=== PATIENT | male | born 1990 | race Caucasian/White ===

== ENCOUNTER 2017-12-30 09:09 | Emergency (ER) | payer SELFPAY ==
[~2017-12-30] VITALS: Ht 190.5 cm; Wt 94.6 kg
[2017-12-30] MEDS ORDERED: CEFTRIAXONE 250 MG IM ONE (11:00)
[2017-12-30] MEDS ORDERED: AZITHROMYCIN 500 MG TABLET PO ONE (11:00)
[2017-12-30 11:25] LABS: BASOPHILS # (AUTO) 0.02 x10^3/uL (0-0.1); BASOPHILS % (AUTO) 0 % (0-1); EOSINOPHILS # (AUTO) 0.07 x10^3/uL (0-0.4); EOSINOPHILS % (AUTO) 1 % (1-7); LYMPHOCYTES % (AUTO) 25 % (22-44); MD NO; MEAN CORPUSCULAR HGB CONC 33.4 g/dL (33.2-36.2); MEAN CORPUSCULAR VOLUME 89.7 fL (81-97); MEAN PLATELET VOLUME 8.5 fL (7.4-10.4); MONOCYTES # (AUTO) 0.74 x10^3/uL (0.2-0.8); MONOCYTES % (AUTO) 11 % (2-9); NEUTROPHILS # (AUTO) 4.08 x10^3/uL (1.8-6.8); NEUTROPHILS % (AUTO) 63 % (42-75); PLATELET COUNT 278 x10^3/uL (130-400); RED BLOOD COUNT 5.65 x10^6/uL (4.38-5.82); RED CELL DISTRIBUTION WIDTH 14.2 % (9.4-14.8)
[2017-12-30 11:25] LABS: MICROSCOPIC AUTO
[2017-12-30 11:29] LABS: CULTURE INDICATED? YES
[2017-12-30 11:36] LABS: ALANINE AMINOTRANSFERASE 20 U/L (12-78); ALBUMIN 3.9 g/dL (3.4-5.0); ANION GAP 8 mmol/L (5-15); CHLORIDE 106 mmol/L (98-107)
[2017-12-30 11:38] LABS: ALKALINE PHOSPHATASE 93 U/L (45-117); BILIRUBIN,TOTAL 0.4 mg/dL (0.2-1.0); TOTAL PROTEIN 8.2 g/dL (6.4-8.2)
[2017-12-30] MEDS ORDERED: AZITHROMYCIN 500 MG TABLET ONE (13:58)
[2017-12-30] MEDS ORDERED: CEFTRIAXONE 250 MG ONE (13:58)
[2017-12-30 14:27] VITALS: BP 118/72
== END 2017-12-30 14:29 | disposition home or self-care (01) ==
LOC: ED 12:46
DX: A54.01 Gonococcal cystitis and urethritis, unspecified (principal); N34.2 Other urethritis
CPT/HCPCS: 36415; 80053; 81001; 85025; 87086; 87491; 87591; 96372; 99284; J0696